=== PATIENT | female | born 1950 | race Two or more races ===

== ENCOUNTER 2023-06-10 19:34 | Emergency (ER) | payer MEDICARE, BC ==
[2023-06-10] MEDS: Ketorolac 30 MG/ML SDV IVPUSH ONE (20:14)
[2023-06-10] MEDS: Sodium Chloride 0.9% 1,000 ML IV ONE (20:14)
[2023-06-10 20:15] LABS: BASOPHILS ABSOLUTE AUTO 0.12 K/uL (0.00-0.20); BASOPHILS PERCENT AUTO 1.3 % (0.0-1.0); EOSINOPHILS ABSOLUTE AUTO 0.17 K/uL (0.00-0.45); EOSINOPHILS PERCENT AUTO 1.8 % (0.0-6.0); HEMATOCRIT 46.3 % (37.0-47.0); HEMOGLOBIN 16.1 g/dL (12.0-16.0); IMMATURE GRAN ABSOLUTE AUTO 0.04 K/uL (0.00-0.05); IMMATURE GRAN PERCENT AUTO 0.4 % (0.0-0.4); LYMPHOCYTES PERCENT AUTO 35.1 % (24.0-44.0); MEAN CORPUSCULAR HEMOGLOBIN 32.6 pg (28.0-32.0); MEAN CORPUSCULAR HGB CONC 34.8 g/dL (32.0-36.0); MEAN CORPUSCULAR VOLUME 93.7 fL (83.0-99.0); MEAN PLATELET VOLUME 9.9 fL (9.4-12.3); MONOCYTES ABSOLUTE AUTO 0.45 K/uL (0.00-0.80); MONOCYTES PERCENT AUTO 4.8 % (0.0-8.0); NEUTROPHILS ABSOLUTE AUTO 5.32 K/uL (1.80-7.70); NEUTROPHILS PERCENT AUTO 56.6 % (41.0-71.0); PLATELET COUNT,PLT 282 K/uL (150-400); RED BLOOD CELL COUNT 4.94 M/uL (4.10-5.30)
[2023-06-10] MEDS: Sodium Chloride 0.9% 10 ML Syringe FLUSH PRN (20:18)
[2023-06-10] MEDS: Sodium Chloride 0.9% 2.5 ML Syringe FLUSH PRN (20:18)
[2023-06-10 20:34] LABS: ALANINE AMINOTRANSFERASE,ALT 22 IU/L (14-63); ALBUMIN 3.8 g/dL (3.4-5.0); ALKALINE PHOSPHATASE 120 U/L (46-116); ASPARTATE AMNIOTRANSFERASE,AST 8 IU/L (15-37); BILIRUBIN TOTAL 0.2 mg/dL (0.2-1.0); BLOOD UREA NITROGEN,BUN 12 mg/dL (7.0-18.0); CALCIUM 8.9 mg/dL (8.5-10.1); CARBON DIOXIDE,CO2 27.5 mmol/L (21.0-32.0); CHLORIDE,CL 102 mmol/L (98-107); CREATININE 0.9 mg/dL (0.6-1.0); EST CRCL DRUG DOSING (CG) 44.69 mL/min; GLUCOSE RANDOM 202 mg/dL (74-106); MAGNESIUM 1.7 mg/dL (1.8-2.4); PROTEIN TOTAL,TP 7.5 g/dL (6.4-8.2); SODIUM,NA 139 mmol/L (136-145)
[2023-06-10 20:36] LABS: ESTIMATED GFR 68 mL/min (>60); ETHANOL BLOOD MEDICAL < 3.0 mg/dL
[2023-06-10 20:50] LABS: APPEARANCE,URINE CLEAR; BILIRUBIN,URINE NEGATIVE (NEGATIVE); COLOR,URINE YELLOW; GLUCOSE,URINE NEGATIVE (NEGATIVE); KETONES,URINE NEGATIVE (NEGATIVE); LEUKOCYTE ESTERASE,URINE NEGATIVE (NEGATIVE); NITRITE,URINE NEGATIVE (NEGATIVE); OCCULT BLOOD,URINE TRACE-INTACT (NEGATIVE); PROTEIN,URINE NEGATIVE (NEGATIVE); UROBILINOGEN,URINE 0.2 EU/dL (<2.0)
[2023-06-10 20:59] LABS: CORONAVIRUS COVID-19 NAA NEGATIVE (NEGATIVE); INFLUENZA A NAA NEGATIVE (NEGATIVE); INFLUENZA B NAA NEGATIVE (NEGATIVE)
[2023-06-10 21:06] LABS: BACTERIA,URINE NOT SEEN (NEGATIVE); EPITHELIAL CELLS,URINE FEW (NONE-FEW); WBC,URINE NONE SEEN (0-5/HPF)
[2023-06-10] MEDS ORDERED: Iopamidol 755 MG/ML 500 ML Multipack Bottle IVPUSH ONE (22:20)
[2023-06-10] MEDS: Aspirin 81 MG Tab.Chew PO ONE (22:31)
== END 2023-06-10 22:37 | disposition home or self-care (01) ==
LOC: MW.ED 19:34
DX: G45.9 Transient cerebral ischemic attack, unspecified (principal); Z75.8 Other problems related to medical facilities and other health care
CPT/HCPCS: 0240U; 36415; 70450; 71045; 80053; 80307; 81001; 83735; 84443; 84484; 85025; 85652; 93005; 96361; 96374; 99284; A9270; J1885; J3490; J7030; 93010

== ENCOUNTER 2024-02-14 09:06 | Day surgery (SDC) | payer MEDICARE, BC ==
[~2024-02-14 09:06] MED LIST: Sodium Chloride 0.9% 10 ML Syringe FLUSH PRN; Sodium Chloride 0.9% 2.5 ML Syringe FLUSH PRN; Sodium Chloride 0.9% 20 ML SDV IV PRN
[2024-02-14] MEDS ORDERED: propofoL 50 ML ONE ×2 (09:49→09:50)
[2024-02-14] MEDS: Lactated Ringers 1,000 ML IV SCH (10:57)
[2024-02-14] MEDS ORDERED: Lidocaine 2% 5 ML SDV ONE (11:09)
[2024-02-14] MEDS ORDERED: Glycopyrrolate 0.2 MG/ML SDV ONE (11:34)
== END 2024-02-14 12:40 | disposition home or self-care (01) ==
LOC: MW.SDS 09:06
PROVIDERS: ATTEND Surgery
DX: Z12.11 Encounter for screening for malignant neoplasm of colon (principal); D12.3 Benign neoplasm of transverse colon; K62.1 Rectal polyp; K57.30 Diverticulosis of large intestine without perforation or abscess without bleeding; E11.9 Type 2 diabetes mellitus without complications; E78.00 Pure hypercholesterolemia, unspecified; Z79.899 Other long term (current) drug therapy; Z88.0 Allergy status to penicillin; Z88.8 Allergy status to other drugs, medicaments and biological substances; Z86.0100 Personal history of colon polyps, unspecified; Z80.0 Family history of malignant neoplasm of digestive organs
CPT/HCPCS: 45380; 45385; J2704; J7120; 00811; 88305; 99100; J3490